=== PATIENT | female | born 1965 | race African-American/Black ===

== ENCOUNTER 2019-03-04 13:21 | Emergency (ER) | payer BC ==
[~2019-03-04] VITALS: Ht 165.1 cm; Wt 94.0 kg
[~2019-03-04 13:21] MED LIST: ASPI-1158 PO; ATOR20TA PO; VENL50TA2 PO
[2019-03-04] MEDS ORDERED: ACETAMINOPHEN 500MG TABLET PO ONE (14:30)
[2019-03-04 17:30] VITALS: BP 133/86
== END 2019-03-04 17:35 | disposition home or self-care (01) ==
LOC: ER 13:21
DX: R07.89 Other chest pain (principal); S13.4XXA Sprain of ligaments of cervical spine, initial encounter; M54.5 Low back pain; V49.49XA Driver injured in collision with other motor vehicles in traffic accident, initial encounter; Y93.89 Activity, other specified; Y92.410 Unspecified street and highway as the place of occurrence of the external cause
CPT/HCPCS: 71045; 72100; 93005; 99284